=== PATIENT | female | born 1945 | race Caucasian/White ===

== ENCOUNTER 2017-10-09 13:25 | Emergency (ER) | payer OTHER | END 2017-10-09 14:59 | disposition home or self-care (01) | LOC: FTE 14:59 | DX: I10 Essential (primary) hypertension (principal); Z79.82 Long term (current) use of aspirin | CPT/HCPCS: 99283; Z7502 ==

== ENCOUNTER 2018-01-20 14:55 | Emergency (ER) | payer OTHER ==
[2018-01-20] MEDS: ALPRAZOLAM 0.25 MG TAB PO (17:20)
[2018-01-20] MEDS: hydrALAzine 20 MG INJ IV (18:15)
== END 2018-01-20 18:53 | disposition home or self-care (01) ==
LOC: E/R 14:55
DX: F41.9 Anxiety disorder, unspecified (principal); R40.2142 Coma scale, eyes open, spontaneous, at arrival to emergency department; R40.2362 Coma scale, best motor response, obeys commands, at arrival to emergency department; R40.2252 Coma scale, best verbal response, oriented, at arrival to emergency department; I16.0 Hypertensive urgency; Z79.82 Long term (current) use of aspirin
CPT/HCPCS: 96374; 99284-25

== ENCOUNTER 2018-10-15 20:06 | Emergency (ER) | payer OTHER ==
[2018-10-15 21:43] LABS: ADD MAN DIFF? NO
[2018-10-15 21:47] LABS: BASOPHILS % 0.3 % (0.0-2.0); EOSINOPHILS # 0.1 10^3/ul (0.0-0.5); EOSINOPHILS % 1.3 % (0.0-7.0); HEMATOCRIT 41.3 % (37.0-47.0); HEMOGLOBIN 14.4 g/dl (12.0-16.0); LYMPHOCYTES # 2.1 10^3/ul (0.8-2.9); LYMPHOCYTES % 32.7 % (15.0-51.0); MEAN CORPUSCULAR HEMOGLOBIN 29.7 pg (29.0-33.0); MEAN CORPUSCULAR HGB CONC 34.9 g/dl (32.0-37.0); MEAN CORPUSCULAR VOLUME 85.2 fl (82.0-101.0); MEAN PLATELET VOLUME 10.9 fl (7.4-10.4); MONOCYTE # 0.6 10^3/ul (0.3-0.9); NEUTROPHIL # 3.6 10^3/ul (1.6-7.5); NEUTROPHILS % 56.5 % (39.0-77.0); PLATELET COUNT 245 10^3/UL (140-415); RED BLOOD COUNT 4.85 10^6/ul (4.20-5.40)
[2018-10-15 21:47] LABS: WHITE BLOOD COUNT 6.3 10^3/ul (4.8-10.8)
[2018-10-15] MEDS: morphine 4 MG/ML VIAL IV (21:47)
[2018-10-15] MEDS: ONDANSETRON 4 MG INJ IV (21:47)
[2018-10-15 21:54] LABS: ALANINE AMINOTRANSFERASE 21 IU/L (13-69); ALBUMIN 4.9 g/dl (3.3-4.9); ALBUMIN/GLOBULIN RATIO 1.13; ALKALINE PHOSPHATASE 76 IU/L (42-121); ANION GAP 13 (5-13); ASPARTATE AMINO TRANSFERASE 37 IU/L (15-46); BILIRUBIN,INDIRECT 1.4 mg/dl (0-1.1); BILIRUBIN,TOTAL 1.4 mg/dl (0.2-1.3); BLOOD UREA NITROGEN 18 mg/dl (7-20); CALCIUM 9.8 mg/dl (8.4-10.2); CARBON DIOXIDE 30 mmol/L (21-31); CHLORIDE 88 mmol/L (97-110); CREATININE 0.96 mg/dl (0.44-1.00); GLUCOSE 116 mg/dl (70-220); LIPASE 114 U/L (23-300); SODIUM 131 mmol/L (135-144); TOTAL PROTEIN 9.2 g/dl (6.1-8.1)
[2018-10-15 22:00] LABS: POTASSIUM 2.5 mmol/L (3.5-5.1)
[2018-10-15] MEDS: POTASSIUM CHLORIDE (SR) 20 MEQ TAB PO (22:03)
[2018-10-15 22:06] LABS: TROPONIN-I < 0.012 ng/ml (0.000-0.120)
[2018-10-15 22:07] LABS: ADD UMIC YES; UR ASCORBIC ACID NEGATIVE (NEGATIVE); UR BILIRUBIN (Dip) NEGATIVE (NEGATIVE); UR BLOOD (Dip) 1+ mg/dL (NEGATIVE); UR CLARITY CLEAR (CLEAR); UR COLOR COLORLESS (YELLOW); UR GLUCOSE (Dip) NEGATIVE (NEGATIVE); UR KETONES (Dip) NEGATIVE (NEGATIVE); UR LEUKOCYTE ESTERASE (Dip) NEGATIVE Leu/ul (NEGATIVE); UR NITRITE (Dip) NEGATIVE (NEGATIVE); UR SPECIFIC GRAVITY (Dip) 1.002 (1.003-1.030); UR TOTAL PROTEIN (Dip) NEGATIVE (NEGATIVE); UR UROBILINOGEN (Dip) NEGATIVE (NEGATIVE)
[2018-10-15 22:08] LABS: UR RBC 1 /HPF (0-5); UR WBC 1 /HPF (0-5)
== END 2018-10-15 23:13 | disposition home or self-care (01) ==
LOC: E/R 20:06
DX: R42 Dizziness and giddiness (principal); R10.32 Left lower quadrant pain; E87.6 Hypokalemia; I10 Essential (primary) hypertension; Z79.82 Long term (current) use of aspirin
CPT/HCPCS: 36415; 74176; 80053; 81001; 83690; 84484; 85025; 96374; 96375; 99285-25